=== PATIENT | female | born 1975 | race Caucasian/White ===

== ENCOUNTER 2021-04-02 13:03 | Observation (INO) ==
[2021-04-02] MEDS ORDERED: SODIUM CHLORIDE 0.9% 1000ML 1,000 ML IV STA (13:12)
--- NOTE | 2021-04-02 13:20 | Emergency Department Note ---
Impression & Plan Incomplete , Vaginal bleeding, Pelvic pain ED Provider Note NAME: KAMLA GARCIA AGE: 46 SEX: F : 1975 ARRIVES VIA: Ambulance INFORMANT: Patient, EMS ED PROVIDER(S): Scott Ag DO CHIEF COMPLAINT: Vaginal bleeding HPI: The patient is a 46-year-old female who presented to the emergency department for an evaluation of vaginal bleeding. The patient has been previously. She has had previous miscarriages. This would be her 13th . Her last menstrual period was sometime in January of this year. She has not sought any care at this time. She has 9 full-term births with 3 previous miscarriages. The patient started having vaginal bleeding this morning. It became very heavy. The prehospital personnel evaluated the patient on scene and when she went to stand up she became very presyncopal and lightheaded. The patient was treated with IV fluids prior to arrival. She does not take any medications prescription. She does not use any tobacco or alcohol products. She is had no previous surgeries. She denies having any chest pain or difficulty breathing. She has noticed some swelling in her lower extremities. She did pass multiple clots which were for size prior to arrival. The patient denies having any abdominal pain but started having pelvic cramping prior to arrival. The patient thinks her blood type is O+. ROS: See above HPI for pertinent positives & negatives. A total of 10 systems reviewed and were otherwise negative. PAST MEDICAL HISTORY: See Below PAST SURGICAL HISTORY: See Below FAMILY HISTORY: See Below SOCIAL HISTORY: See Below HOME MEDICATIONS: See Below ALLERGIES: See Below VITALS: See Below PHYSICAL EXAMINATION: GENERAL: The patient is awake and alert. The patient is very anxious appearing. EYES: The conjunctivae are clear. The pupils are round and reactive. EARS, NOSE, MOUTH AND THROAT: The nose is without any evidence of any deformity. NECK: The neck is nontender and supple. RESPIRATORY: Normal respiratory effort is noted there is no evidence of wheezing rhonchi or rales CARDIOVASCULAR: Regular rate and rhythm noted there no murmurs rubs or gallops normal S1 normal S2. GASTROINTESTINAL: The abdomen is soft and nondistended. There is suprapubic tenderness to palpation but no guarding rigidity. MUSCULOSKELETAL/EXTREMITIES: There is no evidence of gross deformity full range of motion is noted in the hips and shoulders. SKIN: Trace pedal edema was noted bilaterally. Multiple varicosities were noted in both lower extremities. Skin is pale. NEUROLOGIC: Patient is awake alert and oriented x3. MEDICAL DECISION MAKING: The patient is a 46-year-old female who presented to emergency department for an evaluation of vaginal bleeding. The patient last had her menstrual period in January of this year. She has a history of miscarriage as well as multiple pregnancies. She had significant hemorrhaging noted. Pelvic exam did reveal significant clots in the vaginal vault. These were removed manually. Os appeared to be open to fingertip as well. Ultrasound showed significant retained products. I discussed the patient's laboratory and radiographic studies with her. I also discussed her case with the on-call CARDROOM MANAGER physician. She was evaluated at the bedside by the CARDROOM MANAGER physician. Attempts were made to remove further products of conception which the patient tolerated quite well in the emergency department but ultrasound showed significant retained products still. The patient was felt to be a better candidate for surgical treatment. T he patient was discussed the risks and benefits of surgical versus conservative therapy. The patient ultimately chose surgical management and was consented for surgery by the CARDROOM MANAGER physician. The patient was treated with IV fluids in the emergency department. She did have one episode of hypotension which resolved with IV hydration. She was reevaluated multiple times. Triage Nursing notes reviewed. Prior medical records reviewed Vital Signs: reviewed and remarkable for no significant abnormalities Differential diagnosis: Etiologies such as threatened AB, miscarriage, ectopic , dysfunction uterine bleeding, bleeding dyscrasia, trauma, infection, as well as others were entertained. ER treatment provided: See below Diagnostics interpreted by me: ECG: none Cardiac Monitoring: An order was placed for continuous cardiac monitoring. The monitor shows a rate of 71 bpm with sinus rhythm. Laboratory studies: As stated above and show below. Imaging studies: See below Consultation(s): I discussed this case with Dr. Badillo who is on-call for CARDROOM MANAGER. She will evaluate the patient in the emergency department. ED COURSE: Procedures: Bedside ultrasound was performed. The uterus was noted to have a significant amount of heterogeneous material. There was no definite pole noted. I was called to the bedside because the patient dropped her blood pressure. On evaluation she had passed a significant amount of clot. Bimanual exam was performed. The os is open to fingertip and the clots were clear. No further active bleeding was noted. The patient was scheduled to go to the operating room. She was awaiting transportation but also had another episode of hypotension. The patient had a repeat hemoglobin which did show significant decrease from her initial hemoglobin. This was discussed with the CARDROOM MANAGER physician. They requested blood transfusion. Blood transfusion was ordered by the CARDROOM MANAGER physician but I did consent the patient for blood prior to her going to the operating room. Past Med/Surg History Medical History (Updated 04/02/21 @ 16:34 by Nabil Coleman MD) Incomplete Surgical History (Updated 04/02/21 @ 16:34 by Nabil Coleman MD) No significant past surgical history Social History Smoking Status: Never smoker Preferred Language: German Feels Safe at Home: Yes Allergies Allergies Allergy/AdvReac Type Severity Reaction Status Date / Time No Known Allergies Allergy Unverified 04/02/21 14:23 Home Meds Home Medications Medication Instructions Recorded Confirmed No Known Home Medications 04/02/21 04/02/21 Results & Data (ED) Vital Signs Vital Signs - 24 hr 04/02/21 13:10 04/02/21 13:12 04/02/21 13:15 Temperature 36.9 C Temperature Source Oral Pulse Rate 93 H 85 82 Pulse Rate [Apical] Pulse Rate [Right Finger] Pulse Rate from SpO2 Sensor Pulse Rhythm [Apical] Pulse Rhythm [Right Finger] Pulse Strength Normal Pulse Strength [Apical] Pulse Strength [Right Finger] Respiratory Rate 16 20 15 Respiratory Effort / Characteristics Non-Labored Respiratory Depth Normal Respiratory Pattern Blood Pressure 98/68 L Blood Pressure [Right Arm] Blood Pressure Mean 78 Blood Pressure Mean [Right Arm] Blood Pressure Position Lying Blood Pressure Position [Right Arm] Pulse Oximetry 98 Oxygen Delivery Method Room Air Sepsis Recent Fever Within 48 Hours No Sepsis New/Unexplained Change in Mental Status N/A Sepsis Action Taken by Nursing No Action Required 04/02/21 13:19 04/02/21 13:25 04/02/21 13:30 Temperature Temperature Source Pulse Rate 85 86 Pulse Rate [Apical] Pulse Rate [Right Finger] Pulse Rate from SpO2 Sensor 85 87 Pulse Rhythm [Apical] Pulse Rhythm [Right Finger] Pulse Strength Pulse Strength [Apical] Pulse Strength [Right Finger] Respiratory Rate 15 16 Respiratory Effort / Characteristics Respiratory Depth Respiratory Pattern Blood Pressure 106/69 99/67 L Blood Pressure [Right Arm] Blood Pressure Mean 81 77 Blood Pressure Mean [Right Arm] Blood Pressure Position Blood Pressure Position [Right Arm] Pulse Oximetry 100 100 100 Oxygen Delivery Method Room Air Sepsis Recent Fever Within 48 Hours Sepsis New/Unexplained Change in Mental Status Sepsis Action Taken by Nursing 04/02/21 13:40 04/02/21 13:42 04/02/21 13:45 Temperature Temperature Source Pulse Rate 65 69 80 Pulse Rate [Apical] Pulse Rate [Right Finger] Pulse Rate from SpO2 Sensor 67 69 81 Pulse Rhythm [Apical] Pulse Rhythm [Right Finger] Pulse Strength Pulse Strength [Apical] Pulse Strength [Right Finger] Respiratory Rate 14 12 18 Respiratory Effort / Characteristics Respiratory Depth Respiratory Pattern Blood Pressure 55/32 L 63/42 L 94/65 L Blood Pressure [Right Arm] Blood Pressure Mean 39 49 74 Blood Pressure Mean [Right Arm] Blood Pressure Position Blood Pressure Position [Right Arm] Pulse Oximetry 96 99 99 Oxygen Delivery Method Sepsis Recent Fever Within 48 Hours Sepsis New/Unexplained Change in Mental Status Sepsis Action Taken by Nursing 04/02/21 13:50 04/02/21 13:55 04/02/21 14:00 Temperature Temperature Source Pulse Rate 74 74 72 Pulse Rate [Apical] Pulse Rate [Right Finger] Pulse Rate from SpO2 Sensor 74 74 72 Pulse Rhythm [Apical] Pulse Rhythm [Right Finger] Pulse Strength Pulse Strength [Apical] Pulse Strength [Right Finger] Respiratory Rate 15 20 18 Respiratory Effort / Characteristics Respiratory Depth Respiratory Pattern Blood Pressure 104/65 89/63 L 106/67 Blood Pressure [Right Arm] Blood Pressure Mean 78 71 80 Blood Pressure Mean [Right Arm] Blood Pressure Position Blood Pressure Position [Right Arm] Pulse Oximetry 98 100 99 Oxygen Delivery Method Sepsis Recent Fever Within 48 Hours Sepsis New/Unexplained Change in Mental Status Sepsis Action Taken by Nursing 04/02/21 14:05 04/02/21 14:15 04/02/21 14:20 Temperature Temperature Source Pulse Rate 74 76 72 Pulse Rate [Apical] Pulse Rate [Right Finger] Pulse Rate from SpO2 Sensor 74 77 72 Pulse Rhythm [Apical] Pulse Rhythm [Right Finger] Pulse Strength Pulse Strength [Apical] Pulse Strength [Right Finger] Respiratory Rate 17 16 11 L Respiratory Effort / Characteristics Respiratory Depth Respiratory Pattern Blood Pressure 108/72 103/61 106/63 Blood Pressure [Right Arm] Blood Pressure Mean 84 75 77 Blood Pressure Mean [Right Arm] Blood Pressure Position Blood Pressure Position [Right Arm] Pulse Oximetry 100 100 100 Oxygen Delivery Method Sepsis Recent Fever Within 48 Hours Sepsis New/Unexplained Change in Mental Status Sepsis Action Taken by Nursing 04/02/21 14:25 04/02/21 14:30 04/02/21 14:35 Temperature Temperature Source Pulse Rate 71 Pulse Rate [Apical] Pulse Rate [Right Finger] Pulse Rate from SpO2 Sensor 72 Pulse Rhythm [Apical] Pulse Rhythm [Right Finger] Pulse Strength Pulse Strength [Apical] Pulse Strength [Right Finger] Respiratory Rate 16 Respiratory Effort / Characteristics Respiratory Depth Respiratory Pattern Blood Pressure 107/64 106/60 107/67 Blood Pressure [Right Arm] Blood Pressure Mean 78 75 80 Blood Pressure Mean [Right Arm] Blood Pressure Position Blood Pressure Position [Right Arm] Pulse Oximetry 100 Oxygen Delivery Method Sepsis Recent Fever Within 48 Hours Sepsis New/Unexplained Change in Mental Status Sepsis Action Taken by Nursing 04/02/21 14:40 04/02/21 14:45 04/02/21 14:50 Temperature Temperature Source Pulse Rate Pulse Rate [Apical] Pulse Rate [Right Finger] Pulse Rate from SpO2 Sensor Pulse Rhythm [Apical] Pulse Rhythm [Right Finger] Pulse Strength Pulse Strength [Apical] Pulse Strength [Right Finger] Respiratory Rate Respiratory Effort / Characteristics Respiratory Depth Respiratory Pattern Blood Pressure 109/67 100/66 104/64 Blood Pressure [Right Arm] Blood Pressure Mean 81 77 77 Blood Pressure Mean [Right Arm] Blood Pressure Position Blood Pressure Position [Right Arm] Pulse Oximetry Oxygen Delivery Method Sepsis Recent Fever Within 48 Hours Sepsis New/Unexplained Change in Mental Status Sepsis Action Taken by Nursing 04/02/21 14:55 04/02/21 15:00 04/02/21 15:05 Temperature Temperature Source Pulse Rate 79 83 Pulse Rate [Apical] Pulse Rate [Right Finger] Pulse Rate from SpO2 Sensor 80 83 Pulse Rhythm [Apical] Pulse Rhythm [Right Finger] Pulse Strength Pulse Strength [Apical] Pulse Strength [Right Finger] Respiratory Rate 19 15 Respiratory Effort / Characteristics Respiratory Depth Respiratory Pattern Blood Pressure 105/68 102/62 95/65 L Blood Pressure [Right Arm] Blood Pressure Mean 80 75 75 Blood Pressure Mean [Right Arm] Blood Pressure Position Blood Pressure Position [Right Arm] Pulse Oximetry 100 100 Oxygen Delivery Method Sepsis Recent Fever Within 48 Hours Sepsis New/Unexplained Change in Mental Status Sepsis Action Taken by Nursing 04/02/21 15:10 04/02/21 15:15 04/02/21 15:20 Temperature Temperature Source Pulse Rate 80 85 79 Pulse Rate [Apical] Pulse Rate [Right Finger] Pulse Rate from SpO2 Sensor 79 84 80 Pulse Rhythm [Apical] Pulse Rhythm [Right Finger] Pulse Strength Pulse Strength [Apical] Pulse Strength [Right Finger] Respiratory Rate 18 20 12 Respiratory Effort / Characteristics Respiratory Depth Respiratory Pattern Blood Pressure 104/66 101/66 97/68 L Blood Pressure [Right Arm] Blood Pressure Mean 78 77 77 Blood Pressure Mean [Right Arm] Blood Pressure Position Blood Pressure Position [Right Arm] Pulse Oximetry 100 100 100 Oxygen Delivery Method Sepsis Recent Fever Within 48 Hours Sepsis New/Unexplained Change in Mental Status Sepsis Action Taken by Nursing 04/02/21 15:25 04/02/21 15:30 04/02/21 15:35 Temperature Temperature Source Pulse Rate 83 79 82 Pulse Rate [Apical] Pulse Rate [Right Finger] Pulse Rate from SpO2 Sensor 82 79 82 Pulse Rhythm [Apical] Pulse Rhythm [Right Finger] Pulse Strength Pulse Strength [Apical] Pulse Strength [Right Finger] Respiratory Rate 16 14 16 Respiratory Effort / Characteristics Respiratory Depth Respiratory Pattern Blood Pressure 102/63 102/66 103/62 Blood Pressure [Right Arm] Blood Pressure Mean 76 78 75 Blood Pressure Mean [Right Arm] Blood Pressure Position Blood Pressure Position [Right Arm] Pulse Oximetry 99 99 100 Oxygen Delivery Method Sepsis Recent Fever Within 48 Hours Sepsis New/Unexplained Change in Mental Status Sepsis Action Taken by Nursing 04/02/21 15:40 04/02/21 15:45 04/02/21 15:50 Temperature Temperature Source Pulse Rate 87 83 88 Pulse Rate [Apical] Pulse Rate [Right Finger] Pulse Rate from SpO2 Sensor 86 83 89 Pulse Rhythm [Apical] Pulse Rhythm [Right Finger] Pulse Strength Pulse Strength [Apical] Pulse Strength [Right Finger] Respiratory Rate 22 21 19 Respiratory Effort / Characteristics Respiratory Depth Respiratory Pattern Blood Pressure 106/65 108/66 100/62 Blood Pressure [Right Arm] Blood Pressure Mean 78 80 74 Blood Pressure Mean [Right Arm] Blood Pressure Position Blood Pressure Position [Right Arm] Pulse Oximetry 99 99 100 Oxygen Delivery Method Sepsis Recent Fever Within 48 Hours Sepsis New/Unexplained Change in Mental Status Sepsis Action Taken by Nursing 04/02/21 15:55 04/02/21 16:00 04/02/21 16:05 Temperature Temperature Source Pulse Rate 90 84 79 Pulse Rate [Apical] Pulse Rate [Right Finger] Pulse Rate from SpO2 Sensor 88 82 79 Pulse Rhythm [Apical] Pulse Rhythm [Right Finger] Pulse Strength Pulse Strength [Apical] Pulse Strength [Right Finger] Respiratory Rate 23 16 20 Respiratory Effort / Characteristics Respiratory Depth Respiratory Pattern Blood Pressure 91/64 L 98/66 L 96/67 L Blood Pressure [Right Arm] Blood Pressure Mean 73 76 76 Blood Pressure Mean [Right Arm] Blood Pressure Position Blood Pressure Position [Right Arm] Pulse Oximetry 100 100 100 Oxygen Delivery Method Sepsis Recent Fever Within 48 Hours Sepsis New/Unexplained Change in Mental Status Sepsis Action Taken by Nursing 04/02/21 16:10 04/02/21 16:15 04/02/21 16:20 Temperature Temperature Source Pulse Rate 85 85 84 Pulse Rate [Apical] Pulse Rate [Right Finger] Pulse Rate from SpO2 Sensor 86 84 84 Pulse Rhythm [Apical] Pulse Rhythm [Right Finger] Pulse Strength Pulse Strength [Apical] Pulse Strength [Right Finger] Respiratory Rate 15 19 20 Respiratory Effort / Characteristics Respiratory Depth Respiratory Pattern Blood Pressure 97/67 L 100/67 100/70 Blood Pressure [Right Arm] Blood Pressure Mean 77 78 80 Blood Pressure Mean [Right Arm] Blood Pressure Position Blood Pressure Position [Right Arm] Pulse Oximetry 100 100 100 Oxygen Delivery Method Sepsis Recent Fever Within 48 Hours Sepsis New/Unexplained Change in Mental Status Sepsis Action Taken by Nursing 04/02/21 16:25 04/02/21 16:30 04/02/21 17:12 Temperature Temperature Source Pulse Rate 88 90 Pulse Rate [Apical] 62 Pulse Rate [Right Finger] Pulse Rate from SpO2 Sensor 88 89 Pulse Rhythm [Apical] Regular Pulse Rhythm [Right Finger] Pulse Strength Pulse Strength [Apical] Normal Pulse Strength [Right Finger] Respiratory Rate 21 20 15 Respiratory Effort / Characteristics Non-Labored Spontaneous Respiratory Depth Normal Respiratory Pattern Regular Blood Pressure 99/70 L 102/64 Blood Pressure [Right Arm] 55/32 L Blood Pressure Mean 79 76 Blood Pressure Mean [Right Arm] 39 Blood Pressure Position Blood Pressure Position [Right Arm] Pulse Oximetry 100 99 100 Oxygen Delivery Method Room Air Sepsis Recent Fever Within 48 Hours Sepsis New/Unexplained Change in Mental Status Sepsis Action Taken by Nursing 04/02/21 17:14 04/02/21 17:17 04/02/21 17:47 Temperature Temperature Source Pulse Rate 75 Pulse Rate [Apical] 68 75 Pulse Rate [Right Finger] Pulse Rate from SpO2 Sensor Pulse Rhythm [Apical] Regular Regular Pulse Rhythm [Right Finger] Pulse Strength Pulse Strength [Apical] Normal Pulse Strength [Right Finger] Respiratory Rate 16 16 16 Respiratory Effort / Characteristics Non-Labored Spontaneous Non-Labored Spontaneous Respiratory Depth Normal Normal Respiratory Pattern Regular Regular Blood Pressure 98/63 L Blood Pressure [Right Arm] 79/43 L 97/62 L Blood Pressure Mean Blood Pressure Mean [Right Arm] 55 73 Blood Pressure Position Blood Pressure Position [Right Arm] Pulse Oximetry 99 95 100 Oxygen Delivery Method Room Air Room Air Room Air Sepsis Recent Fever Within 48 Hours Sepsis New/Unexplained Change in Mental Status Sepsis Action Taken by Nursing 04/02/21 17:49 Temperature 37 C Temperature Source Oral Pulse Rate Pulse Rate [Apical] Pulse Rate [Right Finger] 75 Pulse Rate from SpO2 Sensor Pulse Rhythm [Apical] Pulse Rhythm [Right Finger] Regular Pulse Strength Pulse Strength [Apical] Pulse Strength [Right Finger] Normal Respiratory Rate 18 Respiratory Effort / Characteristics Non-Labored Spontaneous Respiratory Depth Normal Respiratory Pattern Regular Blood Pressure Blood Pressure [Right Arm] 100/61 Blood Pressure Mean Blood Pressure Mean [Right Arm] 74 Blood Pressure Position Blood Pressure Position [Right Arm] Lying Pulse Oximetry 93 Oxygen Delivery Method Room Air Sepsis Recent Fever Within 48 Hours Sepsis New/Unexplained Change in Mental Status Sepsis Action Taken by Alf Medications Current Medication List: was personally reviewed by me Laboratory Data Attestation: I reviewed the patient's lab results. Result diagrams: 04/02/21 13:15 04/02/21 13:15 Lab Results 04/02/21 04/02/21 04/02/21 Range/Units 13:15 13:15 13:15 WBC (4.8-10.8) K/uL RBC (4.2-5.4) M/uL Hgb (12.0-16.0) g/dL POC Hgb (12.0-16.0) g/dl Hct (37-47) % POC Hct (37-47) % MCV (80-100) fL MCH (25-34) pg MCHC (32-36) g/dL RDW Std Deviation (36.4-46.3) fL RDW Coeff of Carmen (11.5-14.5) % Plt Count (130-400) K/uL MPV (7.4-10.4) fL Immature Gran % (Auto) % Neut % (Auto) % Lymph % (Auto) % Madison % (Auto) % Eos % (Auto) % Baso % (Auto) % Neut # (Auto) (1.4-6.5) K/uL Lymph # (Auto) (1.2-3.4) K/uL Madison # (Auto) (0.11-0.59) K/uL Eos # (Auto) (0-0.5) K/uL Baso # (Auto) (0-0.2) K/uL Immature Gran # (Auto) (0.00-0.02) K/uL PT 10.5 (9.0-12.0) Seconds INR 1.0 (0.9-1.1) APTT 32.2 H (21.0-31.0) Seconds PTT Ratio 1.2 POC Sodium (135-144) mmol/L Sodium (136-145) mmol/L POC Potassium (3.3-5.0) mmol/L Potassium (3.5-5.1) mmol/L POC Chloride (101-112) mmol/L Chloride (98-107) mmol/L Carbon Dioxide (21-32) mmol/L POC Total CO2 (24-31) mmol/L Anion Gap (3-11) POC Anion Gap (16-25) mmol/L POC BUN (7-18) mg/dl BUN (7-18) mg/dl Creatinine (0.6-1.2) mg/dl POC Creatinine (0.6-1.3) mg/dl Est Cr Clr Drug Dosing ml/min Est GFR ( Amer) ml/min Est GFR (Non-Af Amer) ml/min BUN/Creatinine Ratio (10-20) Glucose (70-99) mg/dl POC Glucose (other) (70-99) mg/dl Calcium (8.5-10.1) mg/dl POC Ioniz Calcium Carlos (1.12-1.32) mmol/l Total Bilirubin (0.2-1) mg/dl AST (15-37) U/L ALT (12-78) Alkaline Phosphatase (45-117) U/L Total Protein (6.4-8.2) gm/dl Albumin (3.4-5.0) gm/dl Globulin (2.5-4.0) gm/dl Albumin/Globulin Ratio (0.9-2) Lipase (73-393) U/L HCG, Quant 3721 mIU/ml SARS-CoV-2, RNA, NAAT (NEGATIVE) Blood Type O Positive Blood Type Recheck Antibody Screen NEGATIVE Crossmatch See Detail 04/02/21 04/02/21 04/02/21 Range/Units 13:15 13:15 13:15 WBC 5.30 (4.8-10.8) K/uL RBC 3.81 L (4.2-5.4) M/uL Hgb 11.1 L (12.0-16.0) g/dL POC Hgb (12.0-16.0) g/dl Hct 34.1 L (37-47) % POC Hct (37-47) % MCV 89.5 (80-100) fL MCH 29.1 (25-34) pg MCHC 32.6 (32-36) g/dL RDW Std Deviation 42.3 (36.4-46.3) fL RDW Coeff of Carmen 13.0 (11.5-14.5) % Plt Count 229 (130-400) K/uL MPV 11.0 H (7.4-10.4) fL Immature Gran % (Auto) 0.4 % Neut % (Auto) 73.9 % Lymph % (Auto) 14.9 % Madison % (Auto) 6.4 % Eos % (Auto) 3.8 % Baso % (Auto) 0.6 % Neut # (Auto) 3.92 (1.4-6.5) K/uL Lymph # (Auto) 0.79 L (1.2-3.4) K/uL Madison # (Auto) 0.34 (0.11-0.59) K/uL Eos # (Auto) 0.20 (0-0.5) K/uL Baso # (Auto) 0.03 (0-0.2) K/uL Immature Gran # (Auto) 0.02 (0.00-0.02) K/uL PT (9.0-12.0) Seconds INR (0.9-1.1) APTT (21.0-31.0) Seconds PTT Ratio POC Sodium (135-144) mmol/L Sodium 136 (136-145) mmol/L POC Potassium (3.3-5.0) mmol/L Potassium 3.5 (3.5-5.1) mmol/L POC Chloride (101-112) mmol/L Chloride 104 (98-107) mmol/L Carbon Dioxide 27 (21-32) mmol/L POC Total CO2 (24-31) mmol/L Anion Gap 5.0 (3-11) POC Anion Gap (16-25) mmol/L POC BUN (7-18) mg/dl BUN 7 (7-18) mg/dl Creatinine 0.46 L (0.6-1.2) mg/dl POC Creatinine (0.6-1.3) mg/dl Est Cr Clr Drug Dosing 167.6 ml/min Est GFR ( Amer) 137.3 ml/min Est GFR (Non-Af Amer) 118.5 ml/min BUN/Creatinine Ratio 16.0 (10-20) Glucose 88 (70-99) mg/dl POC Glucose (other) (70-99) mg/dl Calcium 9.2 (8.5-10.1) mg/dl POC Ioniz Calcium Carlos (1.12-1.32) mmol/l Total Bilirubin 0.6 (0.2-1) mg/dl AST 22 (15-37) U/L ALT 24 (12-78) Alkaline Phosphatase 53 (45-117) U/L Total Protein 7.5 (6.4-8.2) gm/dl Albumin 3.6 (3.4-5.0) gm/dl Globulin 3.9 (2.5-4.0) gm/dl Albumin/Globulin Ratio 0.9 (0.9-2) Lipase 206 (73-393) U/L HCG, Quant mIU/ml SARS-CoV-2, RNA, NAAT NEGATIVE (NEGATIVE) Blood Type Blood Type Recheck Antibody Screen Crossmatch 04/02/21 04/02/21 04/02/21 Range/Units 13:16 17:20 17:40 WBC (4.8-10.8) K/uL RBC (4.2-5.4) M/uL Hgb (12.0-16.0) g/dL POC Hgb 11.2 L 8.2 L (12.0-16.0) g/dl Hct (37-47) % POC Hct 33 L 24 L (37-47) % MCV (80-100) fL MCH (25-34) pg MCHC (32-36) g/dL RDW Std Deviation (36.4-46.3) fL RDW Coeff of Carmen (11.5-14.5) % Plt Count (130-400) K/uL MPV (7.4-10.4) fL Immature Gran % (Auto) % Neut % (Auto) % Lymph % (Auto) % Madison % (Auto) % Eos % (Auto) % Baso % (Auto) % Neut # (Auto) (1.4-6.5) K/uL Lymph # (Auto) (1.2-3.4) K/uL Madison # (Auto) (0.11-0.59) K/uL Eos # (Auto) (0-0.5) K/uL Baso # (Auto) (0-0.2) K/uL Immature Gran # (Auto) (0.00-0.02) K/uL PT (9.0-12.0) Seconds INR (0.9-1.1) APTT (21.0-31.0) Seconds PTT Ratio POC Sodium 137 139 (135-144) mmol/L Sodium (136-145) mmol/L POC Potassium 3.5 3.4 (3.3-5.0) mmol/L Potassium (3.5-5.1) mmol/L POC Chloride 100 L 105 (101-112) mmol/L Chloride (98-107) mmol/L Carbon Dioxide (21-32) mmol/L POC Total CO2 25 21 L (24-31) mmol/L Anion Gap (3-11) POC Anion Gap 17.0 17.0 (16-25) mmol/L POC BUN 6 L 7 (7-18) mg/dl BUN (7-18) mg/dl Creatinine (0.6-1.2) mg/dl POC Creatinine 0.4 L 0.4 L (0.6-1.3) mg/dl Est Cr Clr Drug Dosing ml/min Est GFR ( Amer) ml/min Est GFR (Non-Af Amer) ml/min BUN/Creatinine Ratio (10-20) Glucose (70-99) mg/dl POC Glucose (other) 90 92 (70-99) mg/dl Calcium (8.5-10.1) mg/dl POC Ioniz Calcium Carlos 1.20 1.10 L (1.12-1.32) mmol/l Total Bilirubin (0.2-1) mg/dl AST (15-37) U/L ALT (12-78) Alkaline Phosphatase (45-117) U/L Total Protein (6.4-8.2) gm/dl Albumin (3.4-5.0) gm/dl Globulin (2.5-4.0) gm/dl Albumin/Globulin Ratio (0.9-2) Lipase (73-393) U/L HCG, Quant mIU/ml SARS-CoV-2, RNA, NAAT (NEGATIVE) Blood Type Blood Type Recheck O Positive Antibody Screen Crossmatch Administered Medications Discontinued Medications Cefazolin Sodium (Cefazolin 1,000 Mg/7.5 Ml Iv Push) Confirm Administered Dose 2,000 mg IV .STK-MED ONE Stop: 04/02/21 18:04 Last Admin: 04/02/21 18:10 Dose: 2,000 mg Documented by: [id number] Sodium Chloride (Nss 1000ml) 1,000 mls @ 999 mls/hr IV .Q1H1M STA Stop: 04/02/21 14:12 Last Infusion: 04/02/21 14:20 Dose: 0 mls/hr Documented by: [id number] Admin: 04/02/21 13:19 Dose: 999 mls/hr Documented by: [id number] Cefazolin Sodium (Ancef 2000mg) 2,000 mg in 15 mls @ 3.75 mls/min IV NOW STA Stop: 04/02/21 14:21 Last Admin: 04/02/21 14:28 Dose: 3.75 mls/min Documented by: [id number] Sodium Chloride (Nss 1000ml) 1,000 mls @ 999 mls/hr IV .Q1H1M ONE Stop: 04/02/21 18:12 Last Admin: 04/02/21 17:38 Dose: 999 mls/hr Documented by: [id number] Imaging Data Radiologist's Impression: Obstetrics Ultrasound 04/02/21 14:18 US OB limited CLINICAL HISTORY: New onset of vaginal bleeding TECHNIQUE: Transabdominal sonogram of the pelvis is performed. COMPARISON: None. FINDINGS: Uterus: Uterus is anteverted and enlarged size measuring 15.0 x 6.4 x 7.3 cm. Is also enlargement of the cervix with a clot present within the cervical canal m easuring approximately 7.1 x 5.1 x 7.9 cm. Endometrial stripe: The endometrium is thickened measuring 3.2 cm at its greatest width with debris present within the endometrial canal. The findings are most characteristic of a missed . Increased vascularity is present. Right ovary: The right ovary is normal in size and echogenicity. Anatomic Doppler flow is demonstrated. There is evidence for corpus luteal cyst measuring 2.4 x 2.1 x 2.0 cm. The ovary itself measures 3.7 x 2.7 x 3.0 cm. There is no evidence for right adnexal mass or cyst. Left ovary: The left ovary is normal in size and echogenicity. Anatomic Doppler flow was demonstrated. The ovary measures 2.2 x 1.7 x 2.3 cm. There is no evidence for left adnexal mass or cyst. Cul de sac: There is no free fluid noted in the cul-de-sac. IMPRESSION: 1. Ultrasound findings characteristic of a missed with no evidence for an intrauterine gestational sac. 2. Debris is present within the endometrial canal with increased vascularity present. 3. A large clot is also seen within the cervix. ACT 112: Negative or not required by law. Electronically signed by: Masood Lemos M.D. 04/02/2021 3:05 PM KUB X-Ray 04/02/21 18:42 KUB HISTORY: Evaluate for foreign bodies. No count performed emergency case COMPARISON: None. FINDINGS: No radiopaque foreign bodies identified within the abdomen or pelvis. Of note, the upper abdomen is not included on this study. Bowel gas pattern is unremarkable. Round calcifications in the pelvis favor phleboliths. IMPRESSION: No radiopaque foreign bodies identified within the visualized abdomen or pelvis. ACT 112: Negative or not required by law. Electronically signed by: Ben Brennan M.D. 04/02/2021 6:58 PM Discharge Plan Visit Data Chief Complaint: Vaginal Bleeding Stated Complaint: HEMORRHAGING, MISCARRIAGE ED Provider: Scott Ag Discharge Problem: Incomplete , Vaginal bleeding, Pelvic pain Patient Disposition: Being Evaluated by Surgeon Discharge Instructions Interventions: ED Discharge Assessment Last Done: 04/02/21 17:47
[2021-04-02 13:28] LABS: iSTAT Creatinine 0.4 mg/dl (0.6-1.3); iSTAT Hemoglobin 11.2 g/dl (12.0-16.0); iSTAT Ionized Calcium 1.2 mmol/l (1.12-1.32); iSTAT Potassium 3.5 mmol/L (3.3-5.0)
[2021-04-02 13:42] LABS: Basophils # (auto) 0.03 K/uL (0-0.2); Basophils % (auto) 0.6 %; Eosinophils % (auto) 3.8 %; Hematocrit (blood only) 34.1 % (37-47); Hemoglobin 11.1 g/dL (12.0-16.0); Immature Granulocytes # (auto) 0.02 K/uL (0.00-0.02); Immature Granulocytes % (auto) 0.4 %; Lymphocytes # (auto) 0.79 K/uL (1.2-3.4); Lymphocytes % (auto) 14.9 %; Mean Corpuscular Hemoglobin 29.1 pg (25-34); Mean Corpuscular Hgb Conc 32.6 g/dL (32-36); Mean Corpuscular Volume 89.5 fL (80-100); Monocytes # (auto) 0.34 K/uL (0.11-0.59); Monocytes % (auto) 6.4 %; Neutrophils # (auto) 3.92 K/uL (1.4-6.5); Neutrophils % (auto) 73.9 %; Platelet Count 229 K/uL (130-400); RDW Standard Deviation 42.3 fL (36.4-46.3); Red Blood Count 3.81 M/uL (4.2-5.4)
[2021-04-02 13:56] LABS: Partial Thromboplastin Ratio 1.2; Partial Thromboplastin Time 32.2 Seconds (21.0-31.0); Prothrombin Time 10.5 Seconds (9.0-12.0)
[2021-04-02 14:18] LABS: Albumin Level 3.6 gm/dl (3.4-5.0); Calcium 9.2 mg/dl (8.5-10.1); Creatinine Clr Calc Pharmacy 167.6 ml/min; Est GFR (African American) 137.3 ml/min; Est GFR (Non-African American) 118.5 ml/min; Potassium 3.5 mmol/L (3.5-5.1)
[2021-04-02] MEDS ORDERED: ceFAZolin 2000MG 2,000 MG/15 ML SYR IV STA (14:18)
[2021-04-02 14:21] LABS: Albumin Globulin Ratio 0.9 (0.9-2); Bilirubin,Total 0.6 mg/dl (0.2-1); Globulin 3.9 gm/dl (2.5-4.0); Total Protein 7.5 gm/dl (6.4-8.2)
--- NOTE | 2021-04-02 14:54 | OB/GYN Consultation ---
Date of Consultation April 02, 2021 Assessment & Plan (1) Episode of heavy vaginal bleedin yo with LMP of 01/10, presenting with heavy VB, passing cloths, incomplete ab Declined going to OR and wanted bed side exam I removed POC with sac and Placenta and bleeding slowed down, most likley completed Denies pain management Discussed US then plan per results, if any POC remoaing we discussed surgery vs Cytotec to complete She desires Cytotec if needed All questions were answered (2) Incomplete : History of Present Illness Reason for Consultation: Vaginla bleeding History of Present Illness Patient is a 46-year-old G 14 P9049 with last menstrual period of January 10. She presented to ER with heavy vaginal bleeding started this morning around 10 AM. She had baby 18 months ago and has not had menstrual periods Until January 10. She has not done test but she did not feel right and she thought she was . She passed large clots of orange size since 10 AM and was dizzy. Receiving IV fluids she feels better with stable vital signs and stable H&H. She denies any pain, fever chills, nausea vomiting. I did the bedside ultrasound and found that upper fundus is empty with small blood clots and lower segment/cervix has large echogenic lesion suggesting blood clot or products of conception. I offered her surgery and suction D&C to remove all products of conception and clean up uterine lining but she declined she prefers expectant management. I offered her pelvic exam and removal products of conception if possible from her cervix and she wanted me to try that. During pelvic exam she passed about 150 mL of clots and I removed placenta with sac most likely complete . Cervix is visible and no bleeding after I removed the products of conception. Uterus is firm about 8 weeks size and nontender. Patient desires expectant management. I offered her ultrasound and recheck how she does and then we make a plan accordingly and she accepted. Patient denies any medical problems or surgeries. Patient denies use of medications but she has been on multiple herbs/vitamins. She takes those for varicose veins to help increase circulation. fish oil and cayenne pepper. Allergies Allergy/AdvReac Type Severity Reaction Status Date / Time No Known Allergies Allergy Unverified 04/02/21 14:23 Home Medications Medication Instructions Recorded Confirmed Type No Known Home Medications 04/02/21 04/02/21 History Patient History Social History Smoking Status: Never smoker Preferred Language: [place] Feels Safe at Home: Yes Review of Systems Constitutional: as per Subjective / HPI Physical Exam Constitutional: well developed, well nourished and comfortable Gastrointestinal (Abdomen): normal bowel sounds, soft, nontender, no hepatosplenomegaly Musculoskeletal: Extremities: + chronic stasis changes (left lower leg, multiple varicose veins, induration) Genitourinary: normal external appearance (blood stained pubic hair) Speculum/Bimanual Exam: + cystocele, + rectocele, + vaginal bleeding (150 ml blood cloths in vagina) and normal cervical palpation Removed POC with placenta and sac from cervix and bleeding minimal Results & Data ([place]) Vital Signs (Past 12 Hours) Vital Signs Temp Pulse Resp BP Pulse Ox 04/02/21 14:25 71 16 107/64 100 04/02/21 14:20 72 11 L 106/63 100 04/02/21 14:15 76 16 103/61 100 04/02/21 14:05 74 17 108/72 100 04/02/21 14:00 72 18 106/67 99 04/02/21 13:55 74 20 89/63 L 100 04/02/21 13:50 74 15 104/65 98 04/02/21 13:45 80 18 94/65 L 99 04/02/21 13:42 69 12 63/42 L 99 04/02/21 13:40 65 14 55/32 L 96 04/02/21 13:30 86 16 99/67 L 100 04/02/21 13:25 100 04/02/21 13:19 85 15 106/69 100 04/02/21 13:15 82 15 04/02/21 13:12 85 20 04/02/21 13:10 36.9 C 93 H 16 98/68 L 98 Laboratory Results Lab Results 04/02/21 04/02/21 04/02/21 Range/Units 13:15 13:15 13:15 WBC (4.8-10.8) K/uL RBC (4.2-5.4) M/uL Hgb (12.0-16.0) g/dL POC Hgb (12.0-16.0) g/dl Hct (37-47) % POC Hct (37-47) % MCV (80-100) fL MCH (25-34) pg MCHC (32-36) g/dL RDW Std Deviation (36.4-46.3) fL RDW Coeff of Carmen (11.5-14.5) % Plt Count (130-400) K/uL MPV (7.4-10.4) fL Immature Gran % (Auto) % Neut % (Auto) % Lymph % (Auto) % Stevens % (Auto) % Eos % (Auto) % Baso % (Auto) % Neut # (Auto) (1.4-6.5) K/uL Lymph # (Auto) (1.2-3.4) K/uL Stevens # (Auto) (0.11-0.59) K/uL Eos # (Auto) (0-0.5) K/uL Baso # (Auto) (0-0.2) K/uL Immature Gran # (Auto) (0.00-0.02) K/uL PT 10.5 (9.0-12.0) Seconds INR 1.0 (0.9-1.1) APTT 32.2 H (21.0-31.0) Seconds PTT Ratio 1.2 POC Sodium (135-144) mmol/L Sodium (136-145) mmol/L POC Potassium (3.3-5.0) mmol/L Potassium (3.5-5.1) mmol/L POC Chloride (101-112) mmol/L Chloride (98-107) mmol/L Carbon Dioxide (21-32) mmol/L POC Total CO2 (24-31) mmol/L Anion Gap (3-11) POC Anion Gap (16-25) mmol/L POC BUN (7-18) mg/dl BUN (7-18) mg/dl Creatinine (0.6-1.2) mg/dl POC Creatinine (0.6-1.3) mg/dl Est Cr Clr Drug Dosing ml/min Est GFR ( Amer) ml/min Est GFR (Non-Af Amer) ml/min BUN/Creatinine Ratio (10-20) Glucose (70-99) mg/dl POC Glucose (other) (70-99) mg/dl Calcium (8.5-10.1) mg/dl POC Ioniz Calcium Carlos (1.12-1.32) mmol/l Total Bilirubin (0.2-1) mg/dl AST (15-37) U/L ALT (12-78) Alkaline Phosphatase (45-117) U/L Total Protein (6.4-8.2) gm/dl Albumin (3.4-5.0) gm/dl Globulin (2.5-4.0) gm/dl Albumin/Globulin Ratio (0.9-2) Lipase (73-393) U/L HCG, Quant 3721 mIU/ml SARS-CoV-2, RNA, NAAT (NEGATIVE) Blood Type O Positive Antibody Screen NEGATIVE 04/02/21 04/02/21 04/02/21 Range/Units 13:15 13:15 13:15 WBC 5.30 (4.8-10.8) K/uL RBC 3.81 L (4.2-5.4) M/uL Hgb 11.1 L (12.0-16.0) g/dL POC Hgb (12.0-16.0) g/dl Hct 34.1 L (37-47) % POC Hct (37-47) % MCV 89.5 (80-100) fL MCH 29.1 (25-34) pg MCHC 32.6 (32-36) g/dL RDW Std Deviation 42.3 (36.4-46.3) fL RDW Coeff of Carmen 13.0 (11.5-14.5) % Plt Count 229 (130-400) K/uL MPV 11.0 H (7.4-10.4) fL Immature Gran % (Auto) 0.4 % Neut % (Auto) 73.9 % Lymph % (Auto) 14.9 % Stevens % (Auto) 6.4 % Eos % (Auto) 3.8 % Baso % (Auto) 0.6 % Neut # (Auto) 3.92 (1.4-6.5) K/uL Lymph # (Auto) 0.79 L (1.2-3.4) K/uL Stevens # (Auto) 0.34 (0.11-0.59) K/uL Eos # (Auto) 0.20 (0-0.5) K/uL Baso # (Auto) 0.03 (0-0.2) K/uL Immature Gran # (Auto) 0.02 (0.00-0.02) K/uL PT (9.0-12.0) Seconds INR (0.9-1.1) APTT (21.0-31.0) Seconds PTT Ratio POC Sodium (135-144) mmol/L Sodium 136 (136-145) mmol/L POC Potassium (3.3-5.0) mmol/L Potassium 3.5 (3.5-5.1) mmol/L POC Chloride (101-112) mmol/L Chloride 104 (98-107) mmol/L Carbon Dioxide 27 (21-32) mmol/L POC Total CO2 (24-31) mmol/L Anion Gap 5.0 (3-11) POC Anion Gap (16-25) mmol/L POC BUN (7-18) mg/dl BUN 7 (7-18) mg/dl Creatinine 0.46 L (0.6-1.2) mg/dl POC Creatinine (0.6-1.3) mg/dl Est Cr Clr Drug Dosing 167.6 ml/min Est GFR ( Amer) 137.3 ml/min Est GFR (Non-Af Amer) 118.5 ml/min BUN/Creatinine Ratio 16.0 (10-20) Glucose 88 (70-99) mg/dl POC Glucose (other) (70-99) mg/dl Calcium 9.2 (8.5-10.1) mg/dl POC Ioniz Calcium Carlos (1.12-1.32) mmol/l Total Bilirubin 0.6 (0.2-1) mg/dl AST 22 (15-37) U/L ALT 24 (12-78) Alkaline Phosphatase 53 (45-117) U/L Total Protein 7.5 (6.4-8.2) gm/dl Albumin 3.6 (3.4-5.0) gm/dl Globulin 3.9 (2.5-4.0) gm/dl Albumin/Globulin Ratio 0.9 (0.9-2) Lipase 206 (73-393) U/L HCG, Quant mIU/ml SARS-CoV-2, RNA, NAAT NEGATIVE (NEGATIVE) Blood Type Antibody Screen 04/02/21 Range/Units 13:16 WBC (4.8-10.8) K/uL RBC (4.2-5.4) M/uL Hgb (12.0-16.0) g/dL POC Hgb 11.2 L (12.0-16.0) g/dl Hct (37-47) % POC Hct 33 L (37-47) % MCV (80-100) fL MCH (25-34) pg MCHC (32-36) g/dL RDW Std Deviation (36.4-46.3) fL RDW Coeff of Carmen (11.5-14.5) % Plt Count (130-400) K/uL MPV (7.4-10.4) fL Immature Gran % (Auto) % Neut % (Auto) % Lymph % (Auto) % Stevens % (Auto) % Eos % (Auto) % Baso % (Auto) % Neut # (Auto) (1.4-6.5) K/uL Lymph # (Auto) (1.2-3.4) K/uL Stevens # (Auto) (0.11-0.59) K/uL Eos # (Auto) (0-0.5) K/uL Baso # (Auto) (0-0.2) K/uL Immature Gran # (Auto) (0.00-0.02) K/uL PT (9.0-12.0) Seconds INR (0.9-1.1) APTT (21.0-31.0) Seconds PTT Ratio POC Sodium 137 (135-144) mmol/L Sodium (136-145) mmol/L POC Potassium 3.5 (3.3-5.0) mmol/L Potassium (3.5-5.1) mmol/L POC Chloride 100 L (101-112) mmol/L Chloride (98-107) mmol/L Carbon Dioxide (21-32) mmol/L POC Total CO2 25 (24-31) mmol/L Anion Gap (3-11) POC Anion Gap 17.0 (16-25) mmol/L POC BUN 6 L (7-18) mg/dl BUN (7-18) mg/dl Creatinine (0.6-1.2) mg/dl POC Creatinine 0.4 L (0.6-1.3) mg/dl Est Cr Clr Drug Dosing ml/min Est GFR ( Amer) ml/min Est GFR (Non-Af Amer) ml/min BUN/Creatinine Ratio (10-20) Glucose (70-99) mg/dl POC Glucose (other) 90 (70-99) mg/dl Calcium (8.5-10.1) mg/dl POC Ioniz Calcium Carlos 1.20 (1.12-1.32) mmol/l Total Bilirubin (0.2-1) mg/dl AST (15-37) U/L ALT (12-78) Alkaline Phosphatase (45-117) U/L Total Protein (6.4-8.2) gm/dl Albumin (3.4-5.0) gm/dl Globulin (2.5-4.0) gm/dl Albumin/Globulin Ratio (0.9-2) Lipase (73-393) U/L HCG, Quant mIU/ml SARS-CoV-2, RNA, NAAT (NEGATIVE) Blood Type Antibody Screen
--- NOTE | 2021-04-02 15:07 | Ultrasound Report ---
US OB limited CLINICAL HISTORY: New onset of vaginal bleeding TECHNIQUE: Transabdominal sonogram of the pelvis is performed. COMPARISON: None. FINDINGS: Uterus: Uterus is anteverted and enlarged size measuring 15.0 x 6.4 x 7.3 cm. Is also enlargement of the cervix with a clot present within the cervical canal measuring approximately 7.1 x 5.1 x 7.9 cm. Endometrial stripe: The endometrium is thickened measuring 3.2 cm at its greatest width with debris p resent within the endometrial canal. The findings are most characteristic of a missed . Incre ased vascularity is present. Right ovary: The right ovary is normal in size and echogenicity. Anatomic Doppler flow is demonstrat ed. There is evidence for corpus luteal cyst measuring 2.4 x 2.1 x 2.0 cm. The ovary itself measures 3.7 x 2.7 x 3.0 cm. There is no evidence for right adnexal mass or cyst. Left ovary: The left ovary is normal in size and echogenicity. Anatomic Doppler flow was demonstrate d. The ovary measures 2.2 x 1.7 x 2.3 cm. There is no evidence for left adnexal mass or cyst. Cul de sac: There is no free fluid noted in the cul-de-sac. IMPRESSION: 1. Ultrasound findings characteristic of a missed with no evidence for an intrau terine gestational sac. 2. Debris is present within the endometrial canal with increased vascularity present. 3. A large clot is also seen within the cervix. ACT 112: Negative or not required by law. Electronically signed by: Masood Lemos M.D. 04/02/2021 3:05 PM
--- NOTE | 2021-04-02 16:04 | Obstetrical Progress Note ---
Date of Service April 02, 2021 Subjective Patient is reevaluated Discussed US results: Uterus: Uterus is anteverted and enlarged size measuring 15.0 x 6.4 x 7.3 cm. Is also enlargement of the cervix with a clot present within the cervical canal measuring approximately 7.1 x 5.1 x 7.9 cm. Endometrial stripe: The endometrium is thickened measuring 3.2 cm at its greatest width with debris present within the endometrial canal. The findings are most characteristic of a missed . Increased vascularity is present. Right ovary: The right ovary is normal in size and echogenicity. Anatomic Doppler flow is demonstrated. There is evidence for corpus luteal cyst measuring 2.4 x 2.1 x 2.0 cm. The ovary itself measures 3.7 x 2.7 x 3.0 cm. There is no evidence for right adnexal mass or cyst. Left ovary: The left ovary is normal in size and echogenicity. Anatomic Doppler flow was demonstrated. The ovary measures 2.2 x 1.7 x 2.3 cm. There is no evidence for left adnexal mass or cyst. Cul de sac: There is no free fluid noted in the cul-de-sac. IMPRESSION: 1. Ultrasound findings characteristic of a missed with no evidence for an intrauterine gestational sac. 2. Debris is present within the endometrial canal with increased vascularity present. 3. A large clot is also seen within the cervix. Discussed options of surgery with completion of / miscarriage and possible d/c home tonight if stable. Discussed medical therapy with Cytotec which may or may not complete with possible more bleeding, anemia and failure which would require surgery. After long discussion she decided to surgery for EUA, Suction D&C under US guidance. Discussed the risks of surgery and she signed an informed consent. All questions were answered. Results & Data ([facility]) Vital Signs (Past 12 Hours) Vital Signs Temp Pulse Resp BP Pulse Ox 04/02/21 14:25 71 16 107/64 100 04/02/21 14:20 72 11 L 106/63 100 04/02/21 14:15 76 16 103/61 100 04/02/21 14:05 74 17 108/72 100 04/02/21 14:00 72 18 106/67 99 04/02/21 13:55 74 20 89/63 L 100 04/02/21 13:50 74 15 104/65 98 04/02/21 13:45 80 18 94/65 L 99 04/02/21 13:42 69 12 63/42 L 99 04/02/21 13:40 65 14 55/32 L 96 04/02/21 13:30 86 16 99/67 L 100 04/02/21 13:25 100 04/02/21 13:19 85 15 106/69 100 04/02/21 13:15 82 15 04/02/21 13:12 85 20 04/02/21 13:10 36.9 C 93 H 16 98/68 L 98
--- NOTE | 2021-04-02 16:32 | Anesthesiology Consultation ---
Date of Service April 02, 2021 Assessment & Plan (1) Encounter for pre-operative examination: Chart Review Chart Review: Acceptable Risk for Surgery History Surgery Operation Date: 04/02/21 13:15 Proposed Procedures p Exam under Anesthesia Suction Dilation and Curettage under Ultrasound Guidance - Caleb Vaughn MD Height/Weight Height: 5 ft 5 in Weight: 90.1 kg Allergies Allergy/AdvReac Type Severity Reaction Status Date / Time No Known Allergies Allergy Unverified 04/02/21 14:23 Medications Home Medications Medication Instructions Recorded Confirmed Last Taken No Known Home Medications 04/02/21 04/02/21 Unknown Past Medical History Medical History (Updated 04/02/21 @ 16:34 by Nabil Coleman MD) Incomplete Past Surgical History Surgical History (Updated 04/02/21 @ 16:34 by Nabil Coleman MD) No significant past surgical history Social History Smoking Status: Never smoker Physical Exam Vital Signs Last Vital Signs Temp 36.9 C 04/02/21 13:10 Pulse 71 04/02/21 14:25 Resp 16 04/02/21 14:25 BP 107/64 04/02/21 14:25 Pulse Ox 100 04/02/21 14:25 Testing Laboratory Results 04/02/21 13:15 04/02/21 13:15 PT 10.5 Seconds (9.0-12.0) 04/02/21 13:15 INR 1.0 (0.9-1.1) 04/02/21 13:15 APTT 32.2 Seconds (21.0-31.0) H 04/02/21 13:15 HCG, Quant 3721 mIU/ml 04/02/21 13:15 Blood Type O Positive 04/02/21 13:15 Antibody Screen NEGATIVE 04/02/21 13:15 04/02/21 13:16 POC Glucose (other) 90 04/02/21 13:15 HCG, Quant 3721
[2021-04-02] MEDS ORDERED: SODIUM CHLORIDE 0.9% 1000ML 1,000 ML IV ONE (17:12)
[2021-04-02] MEDS ORDERED: SODIUM CHLORIDE 0.9% 250 ML IV PRN ×2 (17:25→17:51)
[2021-04-02 17:32] LABS: iSTAT Creatinine 0.4 mg/dl (0.6-1.3); iSTAT Hemoglobin 8.2 g/dl (12.0-16.0); iSTAT Ionized Calcium 1.1 mmol/l (1.12-1.32); iSTAT Potassium 3.4 mmol/L (3.3-5.0)
[2021-04-02] MEDS ORDERED: miSOPROStoL 200 MCG TAB ONE (17:35)
[2021-04-02] MEDS ORDERED: METHYLERGONOVINE MALEATE 0.2 MG/ML AMP ONE (17:35)
[2021-04-02] MEDS ORDERED: FERRIC SUBSULFATE 8 GM VIAL ONE (17:35)
[2021-04-02] MEDS ORDERED: PROPOFOL IV EMULSION 10 MG/ML 20 ML VIAL IV ONE (17:41)
[2021-04-02] MEDS ORDERED: MIDAZOLAM HCL 1 MG/ML 2ML VIAL ONE (17:41)
[2021-04-02] MEDS ORDERED: fentaNYL citrate 100 MCG/2 ML VIAL ONE (17:41)
[2021-04-02] MEDS ORDERED: ONDANSETRON INJ 2 MG/ML 2 ML VIAL ONE (17:41)
[2021-04-02] MEDS ORDERED: fentaNYL citrate 100 MCG/2 ML VIAL IV PRN (17:57)
[2021-04-02] MEDS ORDERED: ATROPINE SULFATE 0.1 MG/ML 10ML SYR IV PRN (17:57)
[2021-04-02] MEDS ORDERED: ONDANSETRON INJ 2 MG/ML 2 ML VIAL IV PRN ×2 (17:57→19:04)
[2021-04-02] MEDS ORDERED: ceFAZolin 2000MG 2,000 MG/15 ML SYR IV ONE (18:05)
[2021-04-02] MEDS ORDERED: PHENYLEPHRINE 100MCG/ML 5ML SYR ONE (18:28)
--- NOTE | 2021-04-02 18:59 | XRay Report ---
KUB HISTORY: Evaluate for foreign bodies. No count performed emergency case COMPARISON: None. FINDINGS: No radiopaque foreign bodies identified within the abdomen or pelvis. Of note, the upper ab domen is not included on this study. Bowel gas pattern is unremarkable. Round calcifications in the p nia favor phleboliths. IMPRESSION: No radiopaque foreign bodies identified within the visualized abdomen or pelvis. ACT 112: Negative or not required by law. Electronically signed by: Ben Brennan M.D. 04/02/2021 6:58 PM
[2021-04-02] MEDS ORDERED: ACETAMINOPHEN 325 MG TAB PO PRN (19:04)
[2021-04-02] MEDS ORDERED: LORazepam 0.5 MG TAB PO PRN (19:04)
[2021-04-02] MEDS ORDERED: IBUPROFEN 600 MG TAB PO PRN (19:04)
[2021-04-02] MEDS ORDERED: MoRPHine SULFATE 4 MG/ML 1 ML CARP\\VIAL IV PRN (19:04)
--- NOTE | 2021-04-02 19:22 | Operative Report (OR) ---
DATE OF SURGERY: 04/02/2021. PREOPERATIVE DIAGNOSIS: The patient is a 46-year-old G14, P9-0-4-9 at 11.5 wks by LMP of 01/10/2021, with incomplete , heavy vaginal bleeding, retained products of conception and dropping Hemoglobin. POSTOPERATIVE DIAGNOSIS: The patient is a 46-year-old G14, P9-0-4-9 at 11.5 wks by LMP of 01/10/2021, with incomplete , heavy vaginal bleeding, retained products of conception and dropping Hemoglobin. PROCEDURE: Exam under anesthesia, cervical polypectomy, suction, dilatation and curettage under ultrasound guidance. SURGEON: Caleb Vaughn MD JAIL KEEPER: OR airframe technician. ESTIMATED BLOOD LOSS: 200 in the OR, she passed large clots in ER with total estimated blood loss of 800 ml.. ANESTHESIA: General. COMPLICATIONS: None. FINDINGS: Exam under anesthesia revealed large anteverted 10-week size uterus, nonpalpable adnexa. The patient was passing clots with about 200 mL in the vagina. Cervix is multiparous with a small polyp at 7 o'clock position. DESCRIPTION OF PROCEDURE: The patient was taken to the operating room where general anesthesia was given without difficulty. She was placed in dorsal lithotomy position and prepared and draped in the usual sterile fashion. Exam under anesthesia was done with the above findings. Bedside ultrasound was done with a full bladder and uterus were visualized to be behind with thickened lining and heterogeneous material in the uterus and endocervix. 300 mL of urine was emptied with the straight catheter. The rest was left to aid during ultrasound examination. A speculum was placed in the patient's vagina. Cervix was visualized, grasped with single tooth tenaculum. There was a small, about 5 x 5 mm cervical polyp at the posterior lip of the cervix at 7 o'clock position. It was grasped with ring forceps and removed and sent to pathology. Uterus was sounded to be 11 cm. An 8-mm suction tip was introduced from cervix and it was twisted in a clockwise position under ultrasound guidance and suctioned white tissue suggesting products of conception. It was repeated 3 times until no more tissues were seen and only minimal blood was coming out. Then a small sharp curette was used to curette the uterine cavity until uterine cry sensation was felt in all quadrants. It was done under ultrasound guidance and those tissues were sent to the pathology. The tneakulum was removed from cervix and it was hemostatic. Uterus was checked to be firm by bimanual exam and the procedure was ended. The patient was started on IV oxytocin and 800 mcg of Cytotec was given rectally. The patient tolerated the procedure well. No complications happened and I was present during the whole procedure. At the end of the procedure an Xray was taken with negative / normal results due to unable to count before surgery. Job ID: [id number] [facility]
--- NOTE | 2021-04-02 19:57 | Anesthesiology Progress Note ---
Date of Service April 02, 2021 Anesthesia Post Procedure Vital Signs Vital Signs: Temp Pulse Pulse Pulse Resp BP BP 04/02/21 19:50 37.1 C 69 17 94/57 L 04/02/21 19:40 36.9 C 71 16 93/57 L 04/02/21 19:30 36.2 C L 71 17 98/59 L 04/02/21 19:20 71 17 97/57 L 04/02/21 19:10 73 18 98/54 L 04/02/21 19:01 36.8 C 83 18 108/66 04/02/21 17:49 37 C 75 18 100/61 04/02/21 17:47 75 16 98/63 L 04/02/21 17:17 75 16 97/62 L 04/02/21 17:14 68 16 79/43 L 04/02/21 17:12 62 15 55/32 L 04/02/21 16:30 90 20 102/64 04/02/21 16:25 88 21 99/70 L 04/02/21 16:20 84 20 100/70 04/02/21 16:15 85 19 100/67 04/02/21 16:10 85 15 97/67 L 04/02/21 16:05 79 20 96/67 L 04/02/21 16:00 84 16 98/66 L 04/02/21 15:55 90 23 91/64 L 04/02/21 15:50 88 19 100/62 04/02/21 15:45 83 21 108/66 04/02/21 15:40 87 22 106/65 04/02/21 15:35 82 16 103/62 04/02/21 15:30 79 14 102/66 04/02/21 15:25 83 16 102/63 04/02/21 15:20 79 12 97/68 L 04/02/21 15:15 85 20 101/66 04/02/21 15:10 80 18 104/66 04/02/21 15:05 83 15 95/65 L 04/02/21 15:00 79 19 102/62 04/02/21 14:55 105/68 04/02/21 14:50 104/64 04/02/21 14:45 100/66 04/02/21 14:40 109/67 04/02/21 14:35 107/67 04/02/21 14:30 106/60 04/02/21 14:25 71 16 107/64 04/02/21 14:20 72 11 L 106/63 04/02/21 14:15 76 16 103/61 04/02/21 14:05 74 17 108/72 04/02/21 14:00 72 18 106/67 04/02/21 13:55 74 20 89/63 L 04/02/21 13:50 74 15 104/65 04/02/21 13:45 80 18 94/65 L 04/02/21 13:42 69 12 63/42 L 04/02/21 13:40 65 14 55/32 L 04/02/21 13:30 86 16 99/67 L 04/02/21 13:25 04/02/21 13:19 85 15 106/69 04/02/21 13:15 82 15 04/02/21 13:12 85 20 04/02/21 13:10 36.9 C 93 H 16 98/68 L Pulse Ox 04/02/21 19:50 99 04/02/21 19:40 99 04/02/21 19:30 100 04/02/21 19:20 100 04/02/21 19:10 100 04/02/21 19:01 100 04/02/21 17:49 93 04/02/21 17:47 100 04/02/21 17:17 95 04/02/21 17:14 99 04/02/21 17:12 100 04/02/21 16:30 99 04/02/21 16:25 100 04/02/21 16:20 100 04/02/21 16:15 100 04/02/21 16:10 100 04/02/21 16:05 100 04/02/21 16:00 100 04/02/21 15:55 100 04/02/21 15:50 100 04/02/21 15:45 99 04/02/21 15:40 99 04/02/21 15:35 100 04/02/21 15:30 99 04/02/21 15:25 99 04/02/21 15:20 100 04/02/21 15:15 100 04/02/21 15:10 100 04/02/21 15:05 100 04/02/21 15:00 100 04/02/21 14:55 04/02/21 14:50 04/02/21 14:45 04/02/21 14:40 04/02/21 14:35 04/02/21 14:30 04/02/21 14:25 100 04/02/21 14:20 100 04/02/21 14:15 100 04/02/21 14:05 100 04/02/21 14:00 99 04/02/21 13:55 100 04/02/21 13:50 98 04/02/21 13:45 99 04/02/21 13:42 99 04/02/21 13:40 96 04/02/21 13:30 100 04/02/21 13:25 100 04/02/21 13:19 100 04/02/21 13:15 04/02/21 13:12 04/02/21 13:10 98 Transfer of Care Handoff Completed per policy Notes Mental Status: alert / awake / arousable Patient Amnestic to Procedure: Yes Nausea / Vomiting: adequately controlled Pain: adequately controlled Airway Patency, RR, SpO2: stable & adequate BP & HR: stable & adequate Hydration State: stable & adequate Anesthetic Complications: no major complications apparent
--- NOTE | 2021-04-02 22:58 | Obstetrical Progress Note ---
Date of Service April 02, 2021 Assessment & Plan Admission and Anticipated Discharge Date Admission Date: April 02, 2021 Subjective Patient is reevaluated. Discussed about surgery and findings. She has been in bed without complaints and wanted to go home tonight if possible. First unit of blood was finished and everything for second unit. Patient was taking to the [facility] by nursing team but felt dizzy and lightheaded on the way and had to come back to the bed. Blood pressure is on the low side. Recommended to stay overnight and get the second unit and then will be discharged in the morning. Patient states her went home and she does not have a ride now anyways. They do not drive and they have to pizza delivery driver of their own to take her home. She does not remember the number of the pizza delivery driver. Patient decided to stay until morning. Continue to monitor closely. Results & Data ([facility]) Vital Signs (Past 12 Hours) Vital Signs Temp Pulse Pulse Pulse Resp BP BP 04/02/21 21:35 36.3 C L 71 16 89/58 L 04/02/21 20:45 36.6 C 76 20 96/59 L 04/02/21 20:20 36.2 C L 69 14 94/55 L 04/02/21 20:10 36.7 C 70 16 90/59 L 04/02/21 20:00 36.7 C 67 17 91/59 L 04/02/21 19:50 37.1 C 69 17 94/57 L 04/02/21 19:40 36.9 C 71 16 93/57 L 04/02/21 19:30 36.2 C L 71 17 98/59 L 04/02/21 19:20 71 17 97/57 L 04/02/21 19:10 73 18 98/54 L 04/02/21 19:01 36.8 C 83 18 108/66 04/02/21 17:49 37 C 75 18 100/61 04/02/21 17:47 75 16 98/63 L 04/02/21 17:17 75 16 97/62 L 04/02/21 17:14 68 16 79/43 L 04/02/21 17:12 62 15 55/32 L 04/02/21 16:30 90 20 102/64 04/02/21 16:25 88 21 99/70 L 04/02/21 16:20 84 20 100/70 04/02/21 16:15 85 19 100/67 04/02/21 16:10 85 15 97/67 L 04/02/21 16:05 79 20 96/67 L 04/02/21 16:00 84 16 98/66 L 04/02/21 15:55 90 23 91/64 L 04/02/21 15:50 88 19 100/62 04/02/21 15:45 83 21 108/66 04/02/21 15:40 87 22 106/65 04/02/21 15:35 82 16 103/62 04/02/21 15:30 79 14 102/66 04/02/21 15:25 83 16 102/63 04/02/21 15:20 79 12 97/68 L 04/02/21 15:15 85 20 101/66 04/02/21 15:10 80 18 104/66 04/02/21 15:05 83 15 95/65 L 04/02/21 15:00 79 19 102/62 04/02/21 14:55 105/68 04/02/21 14:50 104/64 04/02/21 14:45 100/66 04/02/21 14:40 109/67 04/02/21 14:35 107/67 04/02/21 14:30 106/60 04/02/21 14:25 71 16 107/64 04/02/21 14:20 72 11 L 106/63 04/02/21 14:15 76 16 103/61 04/02/21 14:05 74 17 108/72 04/02/21 14:00 72 18 106/67 04/02/21 13:55 74 20 89/63 L 04/02/21 13:50 74 15 104/65 04/02/21 13:45 80 18 94/65 L 04/02/21 13:42 69 12 63/42 L 04/02/21 13:40 65 14 55/32 L 04/02/21 13:30 86 16 99/67 L 04/02/21 13:25 04/02/21 13:19 85 15 106/69 04/02/21 13:15 82 15 04/02/21 13:12 85 20 04/02/21 13:10 36.9 C 93 H 16 98/68 L Pulse Ox 04/02/21 21:35 100 04/02/21 20:45 100 04/02/21 20:20 99 04/02/21 20:10 99 04/02/21 20:00 99 04/02/21 19:50 99 04/02/21 19:40 99 04/02/21 19:30 100 04/02/21 19:20 100 04/02/21 19:10 100 04/02/21 19:01 100 04/02/21 17:49 93 04/02/21 17:47 100 04/02/21 17:17 95 04/02/21 17:14 99 04/02/21 17:12 100 04/02/21 16:30 99 04/02/21 16:25 100 04/02/21 16:20 100 04/02/21 16:15 100 04/02/21 16:10 100 04/02/21 16:05 100 04/02/21 16:00 100 04/02/21 15:55 100 04/02/21 15:50 100 04/02/21 15:45 99 04/02/21 15:40 99 04/02/21 15:35 100 04/02/21 15:30 99 04/02/21 15:25 99 04/02/21 15:20 100 04/02/21 15:15 100 04/02/21 15:10 100 04/02/21 15:05 100 04/02/21 15:00 100 04/02/21 14:55 04/02/21 14:50 04/02/21 14:45 04/02/21 14:40 04/02/21 14:35 04/02/21 14:30 04/02/21 14:25 100 04/02/21 14:20 100 04/02/21 14:15 100 04/02/21 14:05 100 04/02/21 14:00 99 04/02/21 13:55 100 04/02/21 13:50 98 04/02/21 13:45 99 04/02/21 13:42 99 04/02/21 13:40 96 04/02/21 13:30 100 04/02/21 13:25 100 04/02/21 13:19 100 04/02/21 13:15 04/02/21 13:12 04/02/21 13:10 98
--- NOTE | 2021-04-02 23:00 | Post Operative Brief Note ---
Immediate Post Op Note v1 Date of Surgery April 02, 2021 Pre & Post Diagnosis Operation Date: 04/02/21 13:15 <No data on this case meets the specified criteria> I identified the patient and participated in the time-out.: Yes Procedure Operation Date: 04/02/21 13:15 <No data on this case meets the specified criteria> EUA, Suction, D&C under US guidance Surgeon Caleb Vaughn MD Bicycle Technician OR nurse Estimated Blood Loss 200 Findings Consistent with Post-Op Diagnosis Drains Batres Catheter (900 ml) Anesthesia Type General Complications none Disposition Accompanied Patient To Recovery: Yes
[2021-04-02 23:03] LABS: Hematocrit (blood only) 28.3 % (37-47); Hemoglobin 9.1 g/dL (12.0-16.0)
[2021-04-02] MEDS: METHYLERGONOVINE MALEATE 0.2 MG TAB PO SCH (23:07)
[2021-04-02] MEDS: LACTATED RINGER'S 1,000 ML IV SCH (23:14)
[2021-04-03] MEDS: METHYLERGONOVINE MALEATE 0.2 MG TAB PO SCH ×3 (01:43→07:38)
[2021-04-03] MEDS: LACTATED RINGER'S 1,000 ML IV SCH (04:41)
[2021-04-03 07:40] LABS: Basophils # (auto) 0.01 K/uL (0-0.2); Basophils % (auto) 0.4 %; Eosinophils # (auto) 0.16 K/uL (0-0.5); Eosinophils % (auto) 6.5 %; Hematocrit (blood only) 29.4 % (37-47); Hemoglobin 9.5 g/dL (12.0-16.0); Immature Granulocytes # (auto) 0.01 K/uL (0.00-0.02); Immature Granulocytes % (auto) 0.4 %; Lymphocytes # (auto) 0.87 K/uL (1.2-3.4); Lymphocytes % (auto) 35.2 %; Mean Corpuscular Hemoglobin 28.6 pg (25-34); Mean Corpuscular Hgb Conc 32.3 g/dL (32-36); Mean Corpuscular Volume 88.6 fL (80-100); Mean Platelet Volume 10.6 fL (7.4-10.4); Monocytes # (auto) 0.24 K/uL (0.11-0.59); Monocytes % (auto) 9.7 %; Neutrophils # (auto) 1.18 K/uL (1.4-6.5); Neutrophils % (auto) 47.8 %; Platelet Count 160 K/uL (130-400); RDW Coefficient of Variation 14.1 % (11.5-14.5); RDW Standard Deviation 46.2 fL (36.4-46.3); Red Blood Count 3.32 M/uL (4.2-5.4); White Blood Count 2.47 K/uL (4.8-10.8)
[2021-04-03 08:10] LABS: Albumin Level 2.8 gm/dl (3.4-5.0); BUN Creatinine Ratio 12.2 (10-20); Calcium 7.9 mg/dl (8.5-10.1); Creatinine Clr Calc Pharmacy 202.9 ml/min; Est GFR (African American) 146.2 ml/min; Est GFR (Non-African American) 126.1 ml/min; Potassium 3.4 mmol/L (3.5-5.1)
[2021-04-03 08:21] LABS: Albumin Globulin Ratio 0.9 (0.9-2); Bilirubin,Total 0.4 mg/dl (0.2-1); Total Protein 5.8 gm/dl (6.4-8.2)
--- NOTE | 2021-04-03 09:07 | Gynecologic Progress Note ---
Date of Service April 03, 2021 Assessment & Plan Admission and Anticipated Discharge Date Admission Date: April 02, 2021 Subjective feels OK wants to go home Physical Exam Constitutional: WD/WN, vitals as above comfortable Abdomen soft and non- tender legs with sever bilateral vascular disease. neg Kate's Results & Data ([facility]) Vital Signs (Past 12 Hours) Vital Signs Temp Pulse Pulse Resp BP BP Pulse Ox 04/03/21 07:08 36.3 C L 60 14 93/57 L 94 04/03/21 02:30 36.7 C 70 16 87/55 L 98 04/03/21 01:30 36.7 C 66 16 97/65 L 98 04/03/21 00:30 37 C 73 16 97/64 L 98 04/03/21 00:00 36.7 C 76 16 97/63 L 98 04/02/21 23:30 36.7 C 69 16 99/64 L 100 04/02/21 23:15 36.7 C 72 16 100/64 98 04/02/21 22:56 36.5 C 68 16 97/62 L 98 04/02/21 21:35 36.3 C L 71 16 89/58 L 100 Laboratory Results 04/02/21 04/02/21 04/02/21 13:15 13:15 13:15 WBC RBC Hgb POC Hgb Hct POC Hct MCV MCH MCHC RDW Std Deviation RDW Coeff of Carmen Plt Count MPV Immature Gran % (Auto) Neut % (Auto) Lymph % (Auto) [place] % (Auto) Eos % (Auto) Baso % (Auto) Neut # (Auto) Lymph # (Auto) [place] # (Auto) Eos # (Auto) Baso # (Auto) Immature Gran # (Auto) PT 10.5 INR 1.0 APTT 32.2 H PTT Ratio 1.2 POC Sodium Sodium POC Potassium Potassium POC Chloride Chloride Carbon Dioxide POC Total CO2 Anion Gap POC Anion Gap POC BUN BUN Creatinine POC Creatinine Est Cr Clr Drug Dosing Est GFR ( Amer) Est GFR (Non-Af Amer) BUN/Creatinine Ratio Glucose POC Glucose (other) Calcium POC Ioniz Calcium Carlos Total Bilirubin AST ALT Alkaline Phosphatase Total Protein Albumin Globulin Albumin/Globulin Ratio Lipase HCG, Quant 3721 SARS-CoV-2, RNA, NAAT Blood Type O Positive Blood Type Recheck Antibody Screen NEGATIVE Crossmatch See Detail 04/02/21 04/02/21 04/02/21 13:15 13:15 13:15 WBC 5.30 RBC 3.81 L Hgb 11.1 L POC Hgb Hct 34.1 L POC Hct MCV 89.5 MCH 29.1 MCHC 32.6 RDW Std Deviation 42.3 RDW Coeff of Carmen 13.0 Plt Count 229 MPV 11.0 H Immature Gran % (Auto) 0.4 Neut % (Auto) 73.9 Lymph % (Auto) 14.9 [place] % (Auto) 6.4 Eos % (Auto) 3.8 Baso % (Auto) 0.6 Neut # (Auto) 3.92 Lymph # (Auto) 0.79 L [place] # (Auto) 0.34 Eos # (Auto) 0.20 Baso # (Auto) 0.03 Immature Gran # (Auto) 0.02 PT INR APTT PTT Ratio POC Sodium Sodium 136 POC Potassium Potassium 3.5 POC Chloride Chloride 104 Carbon Dioxide 27 POC Total CO2 Anion Gap 5.0 POC Anion Gap POC BUN BUN 7 Creatinine 0.46 L POC Creatinine Est Cr Clr Drug Dosing 167.6 Est GFR ( Amer) 137.3 Est GFR (Non-Af Amer) 118.5 BUN/Creatinine Ratio 16.0 Glucose 88 POC Glucose (other) Calcium 9.2 POC Ioniz Calcium Carlos Total Bilirubin 0.6 AST 22 ALT 24 Alkaline Phosphatase 53 Total Protein 7.5 Albumin 3.6 Globulin 3.9 Albumin/Globulin Ratio 0.9 Lipase 206 HCG, Quant SARS-CoV-2, RNA, NAAT NEGATIVE Blood Type Blood Type Recheck Antibody Screen Crossmatch 04/02/21 04/02/21 04/02/21 13:16 17:20 17:40 WBC RBC Hgb POC Hgb 11.2 L 8.2 L Hct POC Hct 33 L 24 L MCV MCH MCHC RDW Std Deviation RDW Coeff of Carmen Plt Count MPV Immature Gran % (Auto) Neut % (Auto) Lymph % (Auto) [place] % (Auto) Eos % (Auto) Baso % (Auto) Neut # (Auto) Lymph # (Auto) [place] # (Auto) Eos # (Auto) Baso # (Auto) Immature Gran # (Auto) PT INR APTT PTT Ratio POC Sodium 137 139 Sodium POC Potassium 3.5 3.4 Potassium POC Chloride 100 L 105 Chloride Carbon Dioxide POC Total CO2 25 21 L Anion Gap POC Anion Gap 17.0 17.0 POC BUN 6 L 7 BUN Creatinine POC Creatinine 0.4 L 0.4 L Est Cr Clr Drug Dosing Est GFR ( Amer) Est GFR (Non-Af Amer) BUN/Creatinine Ratio Glucose POC Glucose (other) 90 92 Calcium POC Ioniz Calcium Carlos 1.20 1.10 L Total Bilirubin AST ALT Alkaline Phosphatase Total Protein Albumin Globulin Albumin/Globulin Ratio Lipase HCG, Quant SARS-CoV-2, RNA, NAAT Blood Type Blood Type Recheck O Positive Antibody Screen Crossmatch 04/02/21 04/03/21 04/03/21 22:40 07:13 07:13 WBC 2.47 L RBC 3.32 L Hgb 9.1 L 9.5 L POC Hgb Hct 28.3 L 29.4 L POC Hct MCV 88.6 MCH 28.6 MCHC 32.3 RDW Std Deviation 46.2 RDW Coeff of Carmen 14.1 Plt Count 160 MPV 10.6 H Immature Gran % (Auto) 0.4 Neut % (Auto) 47.8 Lymph % (Auto) 35.2 [place] % (Auto) 9.7 Eos % (Auto) 6.5 Baso % (Auto) 0.4 Neut # (Auto) 1.18 L Lymph # (Auto) 0.87 L [place] # (Auto) 0.24 Eos # (Auto) 0.16 Baso # (Auto) 0.01 Immature Gran # (Auto) 0.01 PT INR APTT PTT Ratio POC Sodium Sodium 139 POC Potassium Potassium 3.4 L POC Chloride Chloride 111 H Carbon Dioxide 23 POC Total CO2 Anion Gap 5.0 POC Anion Gap POC BUN BUN 5 L Creatinine 0.38 L POC Creatinine Est Cr Clr Drug Dosing 202.9 Est GFR ( Amer) 146.2 Est GFR (Non-Af Amer) 126.1 BUN/Creatinine Ratio 12.2 Glucose 76 POC Glucose (other) Calcium 7.9 L POC Ioniz Calcium Carlos Total Bilirubin 0.4 AST 16 ALT 16 Alkaline Phosphatase 39 L Total Protein 5.8 L D Albumin 2.8 L Globulin 3.0 Albumin/Globulin Ratio 0.9 Lipase HCG, Quant SARS-CoV-2, RNA, NAAT Blood Type Blood Type Recheck Antibody Screen Crossmatch
== END 2021-04-03 11:20 | disposition home or self-care (01) ==
LOC: ED 13:03 → 3N 18:00 → OR 18:00